=== PATIENT | male | born 2005 | race Caucasian/White ===

== ENCOUNTER 2024-03-16 01:58 | Emergency (ER) | payer SELFPAY ==
[~2024-03-16 01:58] MED LIST: Naloxone HCl 0.4 mg/ml Vial ONE
[2024-03-16 02:54] LABS: Alcohol 209.2 mg/dL (Less than 10); Anion Gap 16 mmol/L (10-20); BUN (Urea Nitrogen) 9 mg/dL (8.9-20.6); Calc. Creatinine Clearance 0 mL/min (70-130); Calcium 8.1 mg/dL (7.8-10.44); Carbon Dioxide 20 mmol/L (22-29); Chloride 111 mmol/L (98-107); Estimated GFR 103; Glucose 174 mg/dL (70-105); Potassium 3.4 mmol/L (3.5-5.1); Sodium 144 mmol/L (136-145)
[2024-03-16] MEDS ORDERED: Naloxone HCl 0.4 mg/ml Vial ONE (03:03)
== END 2024-03-16 04:50 | disposition home or self-care (01) ==
LOC: CSHERS 01:58
DX: F10.129 Alcohol abuse with intoxication, unspecified (principal); Y90.7 Blood alcohol level of 200-239 mg/100 ml
CPT/HCPCS: 36415; 80048; 80307; 96374; 96376; J2310